=== PATIENT | female | born 1975 | race African-American/Black ===

== ENCOUNTER 2020-03-08 08:06 | Emergency (ER) | payer MEDICAID ==
[~2020-03-08] VITALS: Ht 167.6 cm; Wt 60.0 kg
[2020-03-08] MEDS ORDERED: LEVETIRACETAM 500MG PREMIX 100 ML IV ONE (09:00)
[2020-03-08 09:08] LABS: BASOPHILS % 0.8 % (0.0-2.0); HEMATOCRIT. 38.5 % (36.0-48.0); HEMOGLOBIN. 12.9 g/dL (12.0-16.0); LYMPHOCYTES % 41.2 % (20.0-50.0); MEAN CORPUSCULAR HEMOGLOBIN 30.5 pg (28.0-32.0); MEAN CORPUSCULAR VOLUME 90.8 fL (81.0-99.0); MEAN PLATELET VOLUME 8.7 fl (7.4-10.4); MONOCYTES % 3.9 % (2.0-8.0); NEUTROPHILS % 48.1 % (40.0-76.0); PLATELET 283 x1000/uL (130-400); RED BLOOD CELL COUNT 4.24 mill/uL (4.2-5.4); RED CELL DISTRIBUTION WIDTH 13.3 % (11.6-14.6)
[2020-03-08 09:10] LABS: CHLORIDE 110 mEq/L (98-107)
[2020-03-08 09:29] LABS: HCG SCREEN NEGATIVE
[2020-03-08 12:23] VITALS: BP 123/58
== END 2020-03-08 12:27 | disposition home or self-care (01) ==
LOC: ER 08:06
DX: R56.9 Unspecified convulsions (principal)
CPT/HCPCS: 36415; 80053; 84703; 85025; 93005; 96365; 96366; 99285; J1953